=== PATIENT | female | born 1975 | race Caucasian/White ===

== ENCOUNTER 2016-12-25 18:53 | Emergency (ER) | payer SELFPAY ==
[~2016-12-25] VITALS: Ht 152.4 cm; Wt 108.9 kg
[2016-12-25 19:06] VITALS: BP_SYST 168
[2016-12-25 19:27] LABS: HEMATOCRIT 41.7 % (36-48); HEMOGLOBIN 14.2 g/dL (12.0-16.0); MEAN CORPUSCULAR HEMOGLOBIN 28 pg (27-31); MEAN CORPUSCULAR HGB CONC 34 % (32-36); MEAN CORPUSCULAR VOLUME 83 fL (79.0-98.0); PLATELET COUNT (AUTO) 265 K/uL (130-430); RED BLOOD CELL COUNT(AUTO) 5.02 MIL/uL (4.2-6.2); RED CELL DISTRIBUTION WIDTH 11.7 % (9.0-15.0); WHITE BLOOD COUNT (AUTO) 13.2 K/uL (4.8-10.8)
[2016-12-25 19:36] LABS: CALCIUM 7.9 mg/dL (8.4-11.0); CREATININE 0.77 mg/dL (0.55-1.30); POTASSIUM 3.4 mmol/L (3.5-5.1)
[2016-12-25 19:40] LABS: PROTHROMBIN TIME 10.5 SECS (9.5-12.5)
[2016-12-25 20:03] LABS: BAND % (MANUAL) 19 % (0-6); BASOPHILS % (MANUAL) 0 % (0-2); EOSINOPHILS % (MANUAL) 0 % (0-7); LYMPHOCYTES % (MANUAL) 5 % (20-46); MONOCYTES % (MANUAL) 6 % (0-11)
[2016-12-25 20:05] LABS: ALBUMIN 3.3 g/dL (3.4-4.8); FREE T4 (FREE THYROXINE) 0.7 ng/dL (0.6-1.6); THYROID STIMULATING HORMONE 0.4 uIu/mL (0.34-4.82); TOTAL BILIRUBIN 0.6 mg/dL (0.0-1.0)
[2016-12-25] MEDS ORDERED: cefTRIAXone 1 GM IVPB PREMIX 50 ML IV ONE (21:00)
[2016-12-25] MEDS ORDERED: DIPHENHYDRAMINE INJ 50 MG/ML VIAL IVP ONE (21:00)
[2016-12-25] MEDS ORDERED: NACL 0.9% 1,000 ML IV ONE (21:00)
[2016-12-25] MEDS ORDERED: ACETAMINOPHEN 500 MG TABLET PO ONE (21:00)
[2016-12-25] MEDS ORDERED: MORPHINE 4 MG/ML INJ. SYRINGE IVP ONE (21:00)
[2016-12-25 21:20] LABS: BARBITURATE, URINE NEGATIVE (NEG <=200); BENZODIAZEPINE, URINE NEGATIVE (NEG <=150); CANNABINOID, URINE NEGATIVE (NEG <=50); COCAINE, URINE NEGATIVE (NEG <=150); METHAMPHETAMINES SCREEN,URINE POSITIVE (NEG <=500); OPIATE, URINE POSITIVE (NEG <=100); PHENCYCLIDINE SCREEN,URINE NEGATIVE (NEG <=25); URINE AMPHETAMINE POSITIVE (NEG <=500); URINE METHADONE NEGATIVE (NEG <=200); URINE OXYCODONE SCREEN NEGATIVE (NEG <=100)
[2016-12-25 21:21] LABS: UR TRICYCLIC ANTIDEPRESSANTS NEGATIVE (NEG <=300); URINE PROPOXYPHENE SCREEN NEGATIVE (NEG <=300)
[2016-12-25 21:56] LABS: BILIRUBIN,URINE NEGATIVE (NEGATIVE); BLOOD, URINE NEGATIVE (NEGATIVE); CLARITY/URINE SL HAZY (CLEAR); COLOR,URINE YELLOW (YELLOW); GLUCOSE,URINE NEGATIVE (NEGATIVE); KETONES,URINE NEGATIVE (NEGATIVE); LEUKOCYTE ESTERASE ,URINE NEGATIVE (NEGATIVE); NITRITE, URINE NEGATIVE (NEGATIVE); PROTEIN URINE NEGATIVE (NEGATIVE); UROBILINOGEN,URINE 0.2 (0.2-1.0)
[2016-12-25] MEDS ORDERED: POTASSIUM CHLORIDE 20 MEQ TAB.PRT.SR PO ONE (22:00)
[2016-12-25 23:15] VITALS: BP_SYST 134
== END 2016-12-25 23:15 | disposition home or self-care (01) ==
LOC: SED 18:53
DX: I47.1 Supraventricular tachycardia (principal); E11.65 Type 2 diabetes mellitus with hyperglycemia; F15.10 Other stimulant abuse, uncomplicated; I10 Essential (primary) hypertension; G51.0 Bell's palsy; F41.9 Anxiety disorder, unspecified
CPT/HCPCS: 36415; 36600; 70450; 71010; 80053; 80307; 81003; 81025; 82550; 82803; 83605; 83880; 84439; 84443; 84484; 84703; 85007; 85027; 85379; 85610; 85730; 87040; 93005; 96365; 96375; 99285; J0696; J1200; J2270; J7030

== ENCOUNTER 2017-06-02 19:37 | Emergency (ER) | payer MEDICAID ==
[~2017-06-02] VITALS: Ht 154.9 cm; Wt 104.3 kg
[2017-06-02 19:43] VITALS: BP_SYST 155
[2017-06-02] MEDS ORDERED: KETOROLAC TROMETHAMINE 30 MG VIAL IM ONE (20:30)
[2017-06-02 21:48] VITALS: BP_SYST 138
== END 2017-06-02 21:48 | disposition home or self-care (01) ==
LOC: SED 19:37
DX: S59.902A Unspecified injury of left elbow, initial encounter (principal); M25.512 Pain in left shoulder; M79.672 Pain in left foot; I10 Essential (primary) hypertension; F41.9 Anxiety disorder, unspecified; G51.0 Bell's palsy; Z90.49 Acquired absence of other specified parts of digestive tract; V00.181A Fall from other rolling-type pedestrian conveyance, initial encounter; Y93.59 Activity, other involving other sports and athletics played individually; Y92.89 Other specified places as the place of occurrence of the external cause; Y99.8 Other external cause status
CPT/HCPCS: 73030; 73080; 81025; 96372; 99284; J1885

== ENCOUNTER 2022-05-04 15:33 | Inpatient (IN) | payer MEDICAID ==
[~2022-05-04] VITALS: Ht 154.9 cm; Wt 99.8 kg
[2022-05-04 18:29] LABS: BASOPHILS % (AUTO) 0.3 % (0.0-2.0); EOSINOPHILS # (AUTO) 0.3 K/uL (0.0-0.4); EOSINOPHILS % (AUTO) 2.4 % (0.0-4.0); HEMOGLOBIN 13.5 g/dL (12.0-16.0); LYMPHOCYTES # (AUTO) 1.9 K/uL (1.0-5.5); MEAN CORPUSCULAR HEMOGLOBIN 27 pg (27-31); MEAN CORPUSCULAR HGB CONC 34 % (32-36); MEAN CORPUSCULAR VOLUME 81 fL (79.0-98.0); MONOCYTES # (AUTO) 0.5 K/uL (0.0-1.0); MONOCYTES % (AUTO) 4.7 % (1.7-9.3); NEUTROPHILS # (AUTO) 8.6 K/uL (1.8-7.7); NEUTROPHILS % (AUTO) 75.6 % (40.0-70.0); PLATELET COUNT (AUTO) 491 K/uL (130-430); RED BLOOD CELL COUNT(AUTO) 4.95 MIL/uL (4.2-6.2); RED CELL DISTRIBUTION WIDTH 13.7 % (9.0-15.0); WHITE BLOOD COUNT (AUTO) 11.4 K/uL (4.8-10.8)
[2022-05-04 18:32] LABS: PROTHROMBIN TIME 10.5 SECS (9.5-12.5)
[2022-05-04 18:43] LABS: ALBUMIN 2.9 g/dL (3.4-4.8); C-REACTIVE PROTEIN QUANT 2.9 mg/dL (0-0.5); CALCIUM 8.7 mg/dL (8.4-11.0); CREATININE 0.83 mg/dL (0.55-1.30); TOTAL BILIRUBIN 0.3 mg/dL (0.0-1.0)
[2022-05-04] MEDS ORDERED: CLINDAMYCIN 600 mg/50mL D5W 50 ML IV ONE (22:00)
[2022-05-04] MEDS ORDERED: LINE600T12 PO (23:05)
[2022-05-04] MEDS ORDERED: MORPHINE 4 MG INJ. 4 MG/ML VIAL IVP ONE (23:30)
[2022-05-05 00:03] VITALS: BP_SYST 137
[2022-05-05] MEDS ORDERED: HYDROcodone/ACETAMIN 5-325 MG TAB (NORCO/ VICODIN) PO PRN (03:00)
[2022-05-05] MEDS ORDERED: NALOXONE HCL 0.4 MG/ML AMP (NARCAN) IVP PRN ×2 (03:00)
[2022-05-05] MEDS ORDERED: ACETAMINOPHEN 325 MG TABLET PO PRN (03:00)
[2022-05-05] MEDS: HYDROcodone/ACETAMIN 10-325 MG TAB PO PRN ×3 (03:46→20:26)
[2022-05-05] MEDS: CLINDAMYCIN 300 MG/50 ML D5W 50 ML IV SCH ×5 (05:38→18:00)
[2022-05-05] MEDS ORDERED: traZODone HCL 50 MG TABLET (DESYREL) PO PRN (05:45)
[2022-05-05 08:00] VITALS: BP_SYST 137
[2022-05-05] MEDS ORDERED: ONDANSETRON HCL 4 MG/2 ML VIAL IVP PRN (10:45)
[2022-05-05 13:13] VITALS: BP_SYST 152
[2022-05-05] MEDS ORDERED: NORMAL SALINE 5 ML DISP.SYRIN IVF SCH (14:00)
[2022-05-05] MEDS: NORMAL SALINE 5 ML DISP.SYRIN IVF SCH (14:00)
[2022-05-05 18:15] VITALS: BP_SYST 125
[2022-05-05] MEDS ORDERED: traZODone HCL 50 MG TABLET (DESYREL) PO SCH (21:00)
[2022-05-06] MEDS: CLINDAMYCIN 300 MG/50 ML D5W 50 ML IV SCH ×5 (00:26→23:48)
[2022-05-06] MEDS: NORMAL SALINE 5 ML DISP.SYRIN IVF SCH ×4 (00:27→20:46)
[2022-05-06] MEDS: HYDROcodone/ACETAMIN 10-325 MG TAB PO PRN ×5 (00:39→20:45)
[2022-05-06 04:16] VITALS: BP_SYST 140
[2022-05-06 06:52] LABS: BASOPHILS % (AUTO) 0.4 % (0.0-2.0); EOSINOPHILS # (AUTO) 0.3 K/uL (0.0-0.4); EOSINOPHILS % (AUTO) 2.8 % (0.0-4.0); HEMATOCRIT 36.1 % (36-48); HEMOGLOBIN 12.2 g/dL (12.0-16.0); LYMPHOCYTES # (AUTO) 2.3 K/uL (1.0-5.5); LYMPHOCYTES % (AUTO) 23.6 % (20.5-51.5); MEAN CORPUSCULAR HEMOGLOBIN 28 pg (27-31); MEAN CORPUSCULAR HGB CONC 34 % (32-36); MEAN CORPUSCULAR VOLUME 81 fL (79.0-98.0); MONOCYTES # (AUTO) 0.6 K/uL (0.0-1.0); MONOCYTES % (AUTO) 6.5 % (1.7-9.3); NEUTROPHILS # (AUTO) 6.6 K/uL (1.8-7.7); NEUTROPHILS % (AUTO) 66.7 % (40.0-70.0); PLATELET COUNT (AUTO) 406 K/uL (130-430); RED BLOOD CELL COUNT(AUTO) 4.46 MIL/uL (4.2-6.2); RED CELL DISTRIBUTION WIDTH 13.3 % (9.0-15.0); WHITE BLOOD COUNT (AUTO) 9.9 K/uL (4.8-10.8)
[2022-05-06 07:13] LABS: C-REACTIVE PROTEIN QUANT 1.4 mg/dL (0-0.5); CALCIUM 8.4 mg/dL (8.4-11.0); CREATININE 0.72 mg/dL (0.55-1.30)
[2022-05-06 07:27] LABS: ERYTHROCYTE SEDIMENTATION RATE 59 MM/HR (0-20)
[2022-05-06 08:27] VITALS: BP_SYST 125
[2022-05-06] MEDS: LORazepam 2 MG/ML VIAL IVP PRN ×2 (10:16→22:17)
[2022-05-06 11:56] VITALS: BP_SYST 126
[2022-05-06 15:40] VITALS: BP_SYST 149
[2022-05-06 20:00] VITALS: BP_SYST 149
[2022-05-06 21:47] VITALS: BP_SYST 149
[2022-05-07] VITALS: BP_SYST 116
[2022-05-07] MEDS: HYDROcodone/ACETAMIN 10-325 MG TAB PO PRN (05:25)
[2022-05-07] MEDS: NORMAL SALINE 5 ML DISP.SYRIN IVF SCH ×2 (05:26→05:46)
[2022-05-07] MEDS: CLINDAMYCIN 300 MG/50 ML D5W 50 ML IV SCH ×3 (05:46→18:17)
[2022-05-07 05:48] LABS: BASOPHILS # (AUTO) 0.1 K/uL (0.0-0.2); BASOPHILS % (AUTO) 0.6 % (0.0-2.0); EOSINOPHILS # (AUTO) 0.3 K/uL (0.0-0.4); EOSINOPHILS % (AUTO) 2.3 % (0.0-4.0); HEMATOCRIT 36.6 % (36-48); HEMOGLOBIN 12.4 g/dL (12.0-16.0); LYMPHOCYTES # (AUTO) 2.5 K/uL (1.0-5.5); LYMPHOCYTES % (AUTO) 22.3 % (20.5-51.5); MEAN CORPUSCULAR HEMOGLOBIN 27 pg (27-31); MEAN CORPUSCULAR HGB CONC 34 % (32-36); MEAN CORPUSCULAR VOLUME 80 fL (79.0-98.0); MONOCYTES # (AUTO) 0.8 K/uL (0.0-1.0); MONOCYTES % (AUTO) 6.7 % (1.7-9.3); NEUTROPHILS # (AUTO) 7.7 K/uL (1.8-7.7); NEUTROPHILS % (AUTO) 68.1 % (40.0-70.0); PLATELET COUNT (AUTO) 418 K/uL (130-430); RED BLOOD CELL COUNT(AUTO) 4.59 MIL/uL (4.2-6.2); RED CELL DISTRIBUTION WIDTH 13.5 % (9.0-15.0); WHITE BLOOD COUNT (AUTO) 11.3 K/uL (4.8-10.8)
[2022-05-07 06:21] LABS: ALBUMIN 2.7 g/dL (3.4-4.8); C-REACTIVE PROTEIN QUANT 1.1 mg/dL (0-0.5); CALCIUM 8.7 mg/dL (8.4-11.0); CREATININE 0.65 mg/dL (0.55-1.30); TOTAL BILIRUBIN 0.4 mg/dL (0.0-1.0)
[2022-05-07 07:22] LABS: ERYTHROCYTE SEDIMENTATION RATE 55 MM/HR (0-20)
[2022-05-07 08:00] VITALS: BP_SYST 121
[2022-05-07] MEDS: LORazepam 2 MG/ML VIAL IVP PRN (11:19)
[2022-05-07 12:25] VITALS: BP_SYST 130
[2022-05-07 15:38] VITALS: BP_SYST 130
[2022-05-07 16:14] VITALS: BP_SYST 154
[2022-05-07] MEDS ORDERED: TRAZ-250 PO (17:53)
[2022-05-07] MEDS ORDERED: CLIN-142 PO (17:53)
[2022-05-07] MEDS ORDERED: HYDR-3917 PO (17:53)
== END 2022-05-07 22:17 | disposition home health service (06) | DRG 720 ==
LOC: SED 15:33 → SMU 22:29 → SED 23:37 → SMU 05-05 00:57
PROVIDERS: ADMIT Preventive Medicine Preventive Medicine/Occupational Environmental Medicine; ATTEND Preventive Medicine Preventive Medicine/Occupational Environmental Medicine
DX: A41.9 Sepsis, unspecified organism (principal); E44.0 Moderate protein-calorie malnutrition; K76.0 Fatty (change of) liver, not elsewhere classified; L03.115 Cellulitis of right lower limb; D75.839 Thrombocytosis, unspecified; I10 Essential (primary) hypertension; F41.9 Anxiety disorder, unspecified; R73.9 Hyperglycemia, unspecified; Z20.822 Contact with and (suspected) exposure to COVID-19; Z88.1 Allergy status to other antibiotic agents; Z68.41 Body mass index [BMI] 40.0-44.9, adult; G51.0 Bell's palsy
CPT/HCPCS: 36415; 73590-TC; 80048; 80053; 83605; 85025; 85610-TC; 85651-TC; 85730-TC; 86140; 87040; 87081; 96365; 96375; 99285; J2060; J2270; J3490

== ENCOUNTER 2022-10-02 21:34 | Emergency (ER) | payer MEDICAID ==
[~2022-10-02] VITALS: Ht 154.9 cm; Wt 93.0 kg
[~2022-10-02 21:34] MED LIST: CLIN-142 PO; HYDR-3917 PO; TRAZ-250 PO
[2022-10-02 21:40] VITALS: BP_SYST 201; PULSE 90; RESP 18; TEMP 97; O2SAT 99
[2022-10-02] MEDS ORDERED: cloNIDine HCL 0.2 MG TABLET PO ONE (23:00)
[2022-10-02 23:02] VITALS: BP_SYST 192; PULSE 96; RESP 18; TEMP 97.2; O2SAT 100
[2022-10-02] MEDS ORDERED: ERYT-122 PO (23:20)
[2022-10-02] MEDS ORDERED: SULF1TAB48 PO (23:20)
[2022-10-02] MEDS ORDERED: cloNIDine HCL 0.1 MG TABLET ONE (23:22)
== END 2022-10-02 23:32 | disposition left against medical advice (07) ==
LOC: SED 21:34
DX: L03.116 Cellulitis of left lower limb (principal); M54.50 Low back pain, unspecified; I10 Essential (primary) hypertension; Z88.1 Allergy status to other antibiotic agents; Z79.899 Other long term (current) drug therapy
CPT/HCPCS: 81025; 93005; 99283

== ENCOUNTER 2023-02-25 20:36 | Emergency (ER) | payer MEDICAID ==
[~2023-02-25] VITALS: Ht 154.9 cm; Wt 99.8 kg
[~2023-02-25 20:36] MED LIST changes: +ERYT-122 PO; +SULF1TAB48 PO
[2023-02-25 21:01] VITALS: BP_SYST 184; PULSE 92; RESP 16; TEMP 98.4; O2SAT 97
[2023-02-25] MEDS ORDERED: hydrALAZINE HCL 20 MG/ML VIAL IVP ONE (23:30)
[2023-02-25] MEDS ORDERED: hydrALAZINE HCL 20 MG/ML VIAL ONE (23:36)
[2023-02-25 23:55] LABS: BASOPHILS # (AUTO) 0.1 K/uL (0.0-0.2); BASOPHILS % (AUTO) 0.5 % (0.0-2.0); EOSINOPHILS # (AUTO) 0.4 K/uL (0.0-0.4); HEMATOCRIT 40.4 % (36-48); HEMOGLOBIN 14.3 g/dL (12.0-16.0); LYMPHOCYTES # (AUTO) 3.5 K/uL (1.0-5.5); LYMPHOCYTES % (AUTO) 27.2 % (20.5-51.5); MEAN CORPUSCULAR HEMOGLOBIN 28 pg (27-31); MEAN CORPUSCULAR HGB CONC 35 % (32-36); MEAN CORPUSCULAR VOLUME 79 fL (79.0-98.0); MONOCYTES # (AUTO) 0.7 K/uL (0.0-1.0); MONOCYTES % (AUTO) 5.4 % (1.7-9.3); NEUTROPHILS # (AUTO) 8.1 K/uL (1.8-7.7); NEUTROPHILS % (AUTO) 63.9 % (40.0-70.0); PLATELET COUNT (AUTO) 420 K/uL (130-430); RED BLOOD CELL COUNT(AUTO) 5.15 MIL/uL (4.2-6.2); RED CELL DISTRIBUTION WIDTH 13.6 % (9.0-15.0); WHITE BLOOD COUNT (AUTO) 12.7 K/uL (4.8-10.8)
[2023-02-26 00:13] LABS: ANION GAP 9 (5-15); CALCIUM 9.3 mg/dL (8.4-11.0); CARBON DIOXIDE 30 mmol/L (23-29); CHLORIDE 99 mmol/L (98-107); CREATININE 0.73 mg/dL (0.55-1.30); GFR AFRICAN AMERICAN 111 mL/min (>90); GLUCOSE 106 mg/dL (74-106); SODIUM SERUM 138 mmol/L (136-145); UREA NITROGEN, BLOOD 17 mg/dL (8-21)
[2023-02-26 00:16] LABS: GFR NON AFRICAN-AMERICAN 92 mL/min (>90)
[2023-02-26 00:20] LABS: ALANINE AMINOTRANSFERASE 21 U/L (12-78); ALBUMIN 3.2 g/dL (3.4-4.8); ASPARTATE AMINOTRANSFERASE 11 U/L (10-37); BILIRUBIN,DIRECT 0.1 mg/dL (0.0-0.3); TOTAL BILIRUBIN 0.3 mg/dL (0.0-1.0); TOTAL PROTEIN, SERUM 7.3 g/dL (6.4-8.3)
[2023-02-26 00:21] LABS: PROTHROMBIN TIME 10.1 SECS (9.5-12.5)
[2023-02-26] MEDS ORDERED: LABETALOL HCL 20 MG/4 ML CARTRIDGE IVP ONE (00:30)
[2023-02-26] MEDS ORDERED: ENALAPRILAT DIHYDRATE 1.25 MG/ML VIAL IVP ONE (01:00)
[2023-02-26] MEDS ORDERED: LORazepam 2 MG/ML VIAL IVP ONE (01:00)
[2023-02-26] MEDS ORDERED: AMLO5TAB4 PO (02:50)
[2023-02-26 02:55] VITALS: BP_SYST 158; PULSE 85; RESP 20; TEMP 98; O2SAT 95
== END 2023-02-26 02:55 | disposition home or self-care (01) ==
LOC: SED 20:36
DX: I10 Essential (primary) hypertension (principal); F15.129 Other stimulant abuse with intoxication, unspecified; R07.9 Chest pain, unspecified; Z88.1 Allergy status to other antibiotic agents; Z79.899 Other long term (current) drug therapy
CPT/HCPCS: 99285; 96374; 71045; 80076; 80048; 83880; 85025; 85379; 85610; 85730; 84484; 36415; 93005; 96375; J0360; J2060

== ENCOUNTER 2023-05-22 22:06 | Emergency (ER) | payer MEDICAID ==
[~2023-05-22] VITALS: Ht 154.9 cm; Wt 88.5 kg
[~2023-05-22 22:06] MED LIST changes: +AMLO5TAB4 PO
[2023-05-22 22:24] VITALS: BP_SYST 167; PULSE 89; RESP 19; TEMP 98; O2SAT 97
[2023-05-22] MEDS ORDERED: ACYC-133 PO (23:13)
[2023-05-22] MEDS ORDERED: TRAM50TA2 PO (23:13)
== END 2023-05-22 23:23 | disposition home or self-care (01) ==
LOC: SED 22:06
DX: B01.9 Varicella without complication (principal); Z88.1 Allergy status to other antibiotic agents; Z79.899 Other long term (current) drug therapy
CPT/HCPCS: 99283

== ENCOUNTER 2023-07-30 13:29 | Emergency (ER) | payer MEDICAID ==
[~2023-07-30] VITALS: Ht 154.9 cm; Wt 83.9 kg
[~2023-07-30 13:29] MED LIST changes: +ACYC-133 PO; +TRAM50TA2 PO
[2023-07-30 13:42] VITALS: BP_SYST 185; PULSE 130; RESP 18; TEMP 98.5; O2SAT 97
[2023-07-30 14:53] LABS: BASOPHILS % (AUTO) 0.5 % (0.0-2.0); EOSINOPHILS # (AUTO) 0.1 K/uL (0.0-0.4); EOSINOPHILS % (AUTO) 1.6 % (0.0-4.0); HEMATOCRIT 34.7 % (36-48); HEMOGLOBIN 12.2 g/dL (12.0-16.0); LYMPHOCYTES # (AUTO) 1.8 K/uL (1.0-5.5); MEAN CORPUSCULAR HEMOGLOBIN 28 pg (27-31); MEAN CORPUSCULAR HGB CONC 35 % (32-36); MEAN CORPUSCULAR VOLUME 81 fL (79.0-98.0); MONOCYTES # (AUTO) 0.6 K/uL (0.0-1.0); MONOCYTES % (AUTO) 7.6 % (1.7-9.3); NEUTROPHILS # (AUTO) 5.5 K/uL (1.8-7.7); NEUTROPHILS % (AUTO) 68.3 % (40.0-70.0); PLATELET COUNT (AUTO) 336 K/uL (130-430); RED BLOOD CELL COUNT(AUTO) 4.28 MIL/uL (4.2-6.2); WHITE BLOOD COUNT (AUTO) 8.1 K/uL (4.8-10.8)
[2023-07-30 14:59] LABS: BILIRUBIN,URINE NEGATIVE (NEGATIVE); BLOOD, URINE 3+ (NEGATIVE); COLOR,URINE YELLOW (YELLOW); GLUCOSE,URINE NEGATIVE (NEGATIVE); KETONES,URINE NEGATIVE (NEGATIVE); LEUKOCYTE ESTERASE ,URINE NEGATIVE (NEGATIVE); NITRITE, URINE NEGATIVE (NEGATIVE); PROTEIN URINE TRACE (NEGATIVE); UROBILINOGEN,URINE 0.2 (0.2-1.0)
[2023-07-30 15:00] LABS: CALCIUM 8.6 mg/dL (8.4-11.0); CREATININE 0.64 mg/dL (0.55-1.30); POTASSIUM 3.2 mmol/L (3.5-5.1)
[2023-07-30 15:00] LABS: CLARITY/URINE SLIGHTLY HAZY (CLEAR)
[2023-07-30 15:09] LABS: BACTERIA,URINE None Seen /HPF (None Seen); FINE GRANULAR CASTS,URINE 0-1 /LPF (None Seen); RBC,URINE 20-50 /HPF (0-3); WBC,URINE 0-3 /HPF (0-3)
[2023-07-30] MEDS: AZITHROMYCIN 250 MG TABLET PO ONE (15:37)
[2023-07-30] MEDS: GENTAMICIN SULFATE 80 MG/ 2ML VIAL IM ONE (15:42)
[2023-07-30] MEDS ORDERED: IBUP-1969 PO (17:15)
[2023-07-30] MEDS ORDERED: DOXY100T2 PO (17:15)
[2023-07-30 18:17] VITALS: BP_SYST 147; PULSE 98; RESP 20; TEMP 98.6; O2SAT 97
== END 2023-07-30 18:23 | disposition home or self-care (01) ==
LOC: SED 13:29
DX: N94.6 Dysmenorrhea, unspecified (principal); E28.2 Polycystic ovarian syndrome; A64 Unspecified sexually transmitted disease; I10 Essential (primary) hypertension; F41.9 Anxiety disorder, unspecified; Z88.1 Allergy status to other antibiotic agents; Z79.899 Other long term (current) drug therapy; Z79.2 Long term (current) use of antibiotics
CPT/HCPCS: 99285; 76856; 80048; 81001; 85025; 36415; 81025; 96372; 87491; J1580; Q0144; 81000; 81015